=== PATIENT | female | born 1955 | race Caucasian/White ===

== ENCOUNTER 2019-10-18 14:53 | Emergency (ER) | payer BC, SELFPAY ==
--- NOTE | 2019-10-18 15:01 | ED.DENTAL ---
HPI - Dental/Oral General Chief complaint: Dental/Oral Stated complaint: toothache Time Seen by Provider: 10/18/19 15:04 Source: patient and RN notes reviewed Mode of arrival: ambulatory Limitations: no limitations History of Present Illness HPI Narrative: 64-year-old female presents with concern for fractured tooth. Report on evening she was eating and a tooth on the top right side of her mouth broke. She reports she has been in touch with her dentist, has an appointment tomorrow. Her dentist prescribed her an antibiotic which she has been taking. She reports she has been taking Aleve and ibuprofen for pain without relief. MD Complaint: tooth injury Location: Tooth # (2) Related Data Home Medications Medication Instructions Recorded Confirmed blood sugar diagnostic #10 each 08/21/19 fenofibrate 160 mg tablet 160 mg PO DAILY 08/21/19 lancets #50 each 08/21/19 metformin 500 mg tablet,extended 2,000 mg PO QPM tablet 08/21/19 release 24 hr oxybutynin chloride 5 mg tablet 5 mg PO TID 08/21/19 triamcinolone acetonide 0.05 % 1 applic TOPICAL BID 08/21/19 topical ointment Allergies Allergy/AdvReac Type Severity Reaction Status Date / Time Sulfa (Sulfonamide Allergy Unknown Verified 03/07/17 10:28 Antibiotics) Review of Systems Review of Systems: Narrative: CONSTITUTIONAL: Denies malaise, chills, sweats, or fever. CARDIOVASCULAR: Denies chest pain, palpitations HEENT: Reports right upper dental pain SKIN: Denies facial swelling NEUROLOGIC: Denies headache. All systems reviewed & are unremarkable except as noted in HPI and below PMFSH Social History Social History Smoking status: Heavy tobacco smoker Second hand tobacco smoke exposure: No Alcohol intake: never Comments At time of signature, agree with nursing past medical, surgical, social and family history. There is no relevant family history pertinent to the presenting complaint Exam Narrative: Exam Narrative: GENERAL: Well-appearing, well-nourished, and in no acute distress. HEAD: Normocephalic, atraumatic. EYES: PERRLA, conjunctivae clear ENT: Nares clear, no rhinorrhea or epistaxis. Mucous membranes moist. Oropharynx without edema, erythema or lesions. Fracture noted to tooth #2 with no periapical abscess noted NECK: Supple. CHEST: No respiratory distress. Clear to auscultation. No bony deformities, no asymmetry. Speaks in full sentences. HEART: Regular rate and rhythm. No murmur heard. SKIN: Warm, dry NEURO: Alert and oriented x3. PSYCH: Normal mood and affect Course Course Emergency Course: Patient is aware of diagnosis, understands and agrees to treatment plan. Anticipatory guidance given. Patient agrees to follow-up as directed and is aware of reasons to seek care at the emergency department. Portions of this record may have been created with voice recognition software Vital Signs Vital signs: Vital Signs Temperature 97.9 F 10/18/19 15:02 Pulse Rate 89 10/18/19 15:02 Respiratory Rate 16 10/18/19 15:02 Blood Pressure 139/66 10/18/19 15:02 Pulse Oximetry 93 10/18/19 15:02 Temperature 97.9 F 10/18/19 15:02 Pulse Rate 89 10/18/19 15:02 Respiratory Rate 16 10/18/19 15:02 Blood Pressure 139/66 10/18/19 15:02 Pulse Oximetry 93 10/18/19 15:02 Reviewed. Patient has current diagnosis of hypertension MDM - Dental/Oral MDM Narrative Medical decision making narrative: Patients pain and complaint coupled with physical findings are consistant with dentalgia. There are no focal signs of space occupying lesions that are compromising to the airway; no dysphagia, odynophagia, dysphonia, or dyspnea. No uvular deviation or soft palate edema. Patient is non-toxic appearing. The floor of the mouth is soft with no signs of Omi's Angina; no induration below mandible, no neck pain. Patient is without trismus or drooling and able to swallow secretions. Patient is felt appropriate for dischar
[2019-10-18 15:02] VITALS: BP 139/66; PULSE 89; RESP 16; TEMP 36.6; O2SAT 93
== END 2019-10-18 15:17 | disposition home or self-care (01) ==
PROVIDERS: Emergency Provider Nurse Practitioner; PCP Family Medicine
DX: S02.5XXA Fracture of tooth (traumatic), initial encounter for closed fracture (principal); X58.XXXA Exposure to other specified factors, initial encounter; F17.200 Nicotine dependence, unspecified, uncomplicated; I10 Essential (primary) hypertension; E11.9 Type 2 diabetes mellitus without complications
CPT/HCPCS: 99213; G0463

== ENCOUNTER 2021-05-18 10:54 | Emergency (ER) | payer OTHER, SELFPAY ==
[2021-05-18 11:02] VITALS: BP 142/64; PULSE 78; RESP 20; TEMP 36.2; O2SAT 96
--- NOTE | 2021-05-18 11:11 | ED.FEMALEGU ---
HPI - Female Genitourinary General Chief complaint: Urogenital-Female Stated complaint: POS UTI Time Seen by Provider: 05/18/21 11:11 Source: patient Mode of arrival: ambulatory Limitations: no limitations History of Present Illness HPI Narrative: Serene Humphreys is a 66 yo female with a PMH of hypertension, dyslipidemia, and diabetes who comes to [facility] with complaints of pressure and urgency. She has had UTIs in the past and states that [employer] works very well for her Related Data Home Medications Medication Instructions Recorded Confirmed triamcinolone acetonide 0.05 % 1 applic TOPICAL BID 08/21/19 05/18/21 topical ointment Allergies Allergy/AdvReac Type Severity Reaction Status Date / Time Sulfa (Sulfonamide Allergy Unknown Unknown Verified 05/18/21 11:01 Antibiotics) Review of Systems Review of Systems: CONSTITUTIONAL: Denies fever, chills, sweats. EYES: Denies visual changes, redness, discharge. ENT: Denies rhinorrhea, congestion, sore throat, otalgia. CARDIOVASCULAR: Denies chest pain, palpitations, edema. RESPIRATORY: Denies dyspnea, wheezing, cough GASTROINTESTINAL: Denies abdominal pain, nausea, vomiting, diarrhea. GENITOURINARY: Has dysuria, hematuria, abnormal discharge SKIN: Denies rash or itching. NEUROLOGIC: Denies numbness, or focal weakness. PSYCHIATRIC: Denies anxiety or depression. PMFSH Past Medical History Medical History (Updated 05/18/21 @ 11:21 by Julee Pruett CNP) CKD (chronic kidney disease) stage 3, GFR 30-59 ml/min Dyslipidemia Essential (primary) hypertension Hypertension On correction drug therapy RLS (restless legs syndrome) Type 2 diabetes mellitus with hyperglycemia, without long-term current use of insulin Unspecified osteoarthritis, unspecified site Urge incontinence of urine Social History Social History Smoking status: Former smoker Tobacco type: cigarettes Second hand tobacco smoke exposure: No Smoking end date: 08/19/17 Alcohol intake: never Substance use: never Substance use type: does not use Gender identity (if verbalized by the patient): Female Comments At time of signature, I agree with nursing past medical, surgical, social and family history. There is no relevant family history pertinent to the presenting complaint. Exam Narrative: GENERAL: This is a well-nourished, well-developed patient, in mild distress. HEAD: normocephalic, atraumatic. EYES: P Sclera clear/white. Vision is grossly intact. EARS: External ears normal, Hearing grossly intact. NOSE: External nose normal without nasal discharge, nares without redness, no rhinorrhea. THROAT: Mucous membranes moist, NECK: Neck supple, CARDIOVASCULAR: Regular rate and rhythm without murmurs, gallops, or rubs. RESPIRATORY: Clear to auscultation. Breath sounds equal bilaterally. No wheezes, rales, or rhonchi. GASTROINTESTINAL: Abdomen soft, SKIN: warm, intact with no suspicious lesions or rash, good texture and turgor. NEURO: awake, alert, and oriented to person, place and time. There were no obvious focal neurologic abnormalities. Steady gait EXTREMITIES: Normal range of motion. BACK: Nontender without deformity Course Course Emergency Course: Patient comes with complaints of dysuria and pressure times last few days has prior history of UTI 1+ leukocytes in UA with 1+ glucose also; patient states sugar today was 105 Start on Macrobid 1 twice daily x7 days Vital Signs Vital signs: Vital Signs Temperature 97.2 F L 05/18/21 11:02 Pulse Rate 78 05/18/21 11:02 Respiratory Rate 20 05/18/21 11:02 Blood Pressure 142/64 H 05/18/21 11:02 Pulse Oximetry 96 05/18/21 11:02 Temperature 97.2 F L 05/18/21 11:02 Pulse Rate 78 05/18/21 11:02 Respiratory Rate 20 05/18/21 11:02 Blood Pressure 142/64 H 05/18/21 11:02 Pulse Oximetry 96 05/18/21 11:02 MDM - Female Genitourinary Differential
== END 2021-05-18 11:26 | disposition home or self-care (01) ==
PROVIDERS: Emergency Provider Nurse Practitioner; PCP Family Medicine
DX: N30.00 Acute cystitis without hematuria (principal); Z87.891 Personal history of nicotine dependence; I12.9 Hypertensive chronic kidney disease with stage 1 through stage 4 chronic kidney disease, or unspecified chronic kidney disease; E11.22 Type 2 diabetes mellitus with diabetic chronic kidney disease; N18.30 Chronic kidney disease, stage 3 unspecified; Z79.4 Long term (current) use of insulin; E78.5 Hyperlipidemia, unspecified; G25.81 Restless legs syndrome; M19.90 Unspecified osteoarthritis, unspecified site
CPT/HCPCS: 81003; 87077; 87086; 87088; 87186; 99213; G0463

== ENCOUNTER 2022-01-14 15:43 | Observation (INO) | payer OTHER, SELFPAY ==
[2022-01-14] VITALS (18 sets, daily range): BP systolic 95–161; BP diastolic 67–106; PULSE 94–117; RESP 20–41; TEMP 36.4–36.7; O2SAT 86–100; BMI 42.9
--- NOTE | ~2022-01-14 | CT_ITS ---
EXAMINATION: CTA chest PE protocol DATE: 01/14/2022 18:47 CDT INDICATION: Covid positive. Hypoxia. Elevated d-dimer. TECHNIQUE: Computed tomographic angiography (CTA) of the chest was performed with 100 mL Omnipaque-35 0 intravenous contrast. The dose-length product was 965.13 mGy-cm. Maximum intensity projection 3D-re constructions of the aorta and other arteries were constructed by the technologist on a separate work station. Automated exposure control and iterative reconstruction technique were employed. COMPARISON: None. FINDINGS: Cardiomegaly. No significant pleural or pericardial effusion. There is atherosclerosis of t he aorta and coronary arteries. There are filling defects in lower lobe segmental and subsegmental pu lmonary arteries, consistent with pulmonary embolism. No endobronchial lesions. No focal airspace con solidation. Evaluation of lung parenchyma limited by motion artifact. No large pulmonary nodules or m asses. Moderate thoracic spondylosis with accentuated kyphosis. IMPRESSION: 1. Bilateral lower lobe segmental and subsegmental pulmonary embolism, small thrombus burden. 2: Cardiomegaly. Reviewed, dictated and finalized at location A. IMPRESSION: 1. Bilateral lower lobe segmental and subsegmental pulmonary embolism, small th rombus burden. 2: Cardiomegaly.
--- NOTE | ~2022-01-14 | XR_ITS ---
EXAMINATION: XR chest 1V portable 01/14/2022 16:19 INDICATION: Shortness of breath PROCEDURE: AP portable chest COMPARISON: No prior studies for comparison. FINDINGS: The lungs are clear. Mild cardiomegaly. There are no pleural effusions. There is no pneumo thorax suspected. IMPRESSION: 1: NO ACUTE CARDIOPULMONARY DISEASE. 2: Cardiomegaly. Reviewed, dictated and finalized at location A.
--- NOTE | 2022-01-14 15:46 | PC.NURSE ---
Beam Machine Operator called respiratory.
--- NOTE | 2022-01-14 15:55 | PC.NURSE ---
Respiratory at bedside to place patient on Bipap and to administer breathing treatment.
[2022-01-14] MEDS: LORazepam INJ (*CRX) 2 MG/ML VIAL 1 MG IV PUSH (15:58)
[2022-01-14] MEDS: IPRATROPIUM BR 0.02% INH SOLN 0.5 MG/2.5 ML VIAL 2 MG INHALATION (16:00)
[2022-01-14] MEDS: ALBUTEROL SULFATE NEB 2.5 MG/3 ML INH 10 MG INHALATION ×2 (16:00→16:51)
--- NOTE | 2022-01-14 16:01 | ED.GENADULT ---
HPI - General Adult General Chief complaint: Shortness of Breath/Dyspnea Stated complaint: shortness of breath Time Seen by Provider: 01/14/22 15:50 History of Present Illness HPI narrative: 66-year-old female presented emerged department for evaluation of cute onset of shortness of breath. Patient states that she has felt well over the last few days and denied any recent illness. Patient states that few hours prior to arrival she began having shortness of breath. Patient has a smoking history but denies any prior diagnosis of COPD. Patient states she is vaccinated against COVID and denies any recent COVID exposure. Patient denies any associated chest pain. Upon arrival to the scene by EMS patient was found to be hypoxic and to the 80s on room air. Patient is not on oxygen at home. Initial EKG obtained by EMS did show ST elevation with no reciprocal depression but was auto-read as possible STEMI. STEMI was not called on the field EKG. Upon arrival to the ED EKG was repeated and once again did show some elevation with no reciprocal depression. Patient continues to deny any chest pain upon arrival. Patient denies any prior history of [place] or COPD. Patient is a smoker. Patient does have prior history of hypertension and high cholesterol. Patient is obese. Related Data Home Medications Medication Instructions Recorded Confirmed fenofibrate 160 mg tablet 160 mg PO DAILY 11/23/21 01/14/22 verapamil 180 mg tablet,extended 360 mg PO DAILY 01/14/22 01/14/22 release Allergies Allergy/AdvReac Type Severity Reaction Status Date / Time Sulfa (Sulfonamide Allergy Unknown Unknown Verified 11/23/21 13:05 Antibiotics) Review of Systems Review of Systems: CONSTITUTIONAL: Denies fever, chills, or sweats. EYES: Denies visual changes, redness, or discharge. ENT: Denies rhinorrhea, congestion, sore throat, or otalgia. CARDIOVASCULAR: See HPI, lower extremity edema RESPIRATORY: See HPI GASTROINTESTINAL: Denies abdominal pain, nausea, vomiting, or diarrhea. GENITOURINARY: Denies dysuria or hematuria. SKIN: Denies rash or itching. MUSCULOSKELETAL: Denies back pain, joint pain, or myalgia. NEUROLOGIC: Denies headache, numbness, or weakness. [facility] Past Medical History Medical History (Updated 01/14/22 @ 19:44 by Janelle Alfaro APRN) CKD (chronic kidney disease) stage 3, GFR 30-59 ml/min Dyslipidemia Essential (primary) hypertension Hypertension On intermediate card tender drug therapy RLS (restless legs syndrome) Type 2 diabetes mellitus with hyperglycemia, without long-term current use of insulin Unspecified osteoarthritis, unspecified site Urge incontinence of urine Social History Social History Smoking packs per day: 0.5 Smoking cigarettes per day: 10.0 Years smoked: 42 Smoking pack-years: 21.00 Smoking status: Current every day smoker Tobacco type: cigarettes Second hand tobacco smoke exposure: No Smoking end date: 08/19/19 Alcohol intake: never Substance use: never Substance use type: does not use Gender identity (if verbalized by the patient): Female Spiritual care concerns: Yes Exam Narrative: APPEARANCE: Well appearing, no pain, no distress, well-nourished. HEAD: normocephalic, atraumatic. EYES: PERRLA/EOMI, conjunctivae clear. NOSE: Normal no drainage THROAT: Pharynx clear, no exudate. NECK: Supple. No adenopathy, no masses. RESPIRATORY: Wheezing bilaterally CARDIOVASCULAR: Tachycardic with regular rhythm without murmurs rubs or gallops, bilateral lower extremity edema. ABDOMINAL: Soft, nontender, nondistended, normal bowel sounds MUSCULOSKELETAL: Moves all extremities. Strength/ROM intact NEURO: Alert. Cranial nerves II through XII intact. Grossly intact SKIN: Warm, dry. Normal Color Course Course Emergency Course: Due to her increased work of breathing patient was placed on BiPAP upon arrival to the ED. Patient was having anxie
[2022-01-14 16:03] LABS: Basophils Absolute Auto 0.1 K/mm3 (0.0-0.1); Basophils Percent Auto 0.4 % (0.2-1.2); Eosinophils Absolute Auto 0.2 K/mm3 (0-0.3); Eosinophils Percent Auto 1.3 % (0-4.4); Hematocrit 45.2 % (37.0-47.0); Hemoglobin 13.8 g/dL (12.0-15.0); Immature Granulocyte Absolute 0.04 K/mm3 (0.00-0.031); Immature Granulocyte Percent A 0.3 % (0-0.5); Lymphocytes Absolute Auto 2.85 K/mm3 (0.9-3.2); Lymphocytes Percent Auto 23.9 % (18.3-44.2); Mean Corpuscular HGB Conc 30.5 g/dl (32-36); Mean Corpuscular Hemoglobin 28.7 pg (26-34); Mean Platelet Volume 10.3 fl (7.4-10.4); Monocytes Percent Auto 8.5 % (2.6-8.5); Neutrophils Absolute Auto 7.8 K/mm3 (1.3-6.7); Neutrophils Percent Auto 65.6 % (45.5-73.1); Platelet Count Result 335 k/mm3 (150-375); Red Blood Count 4.81 M/mm3 (4.2-5.4); Red Cell Distribution Width 12.9 % (11.5-14.5); White Blood Count 11.9 K/mm3 (4.5-10.0)
[2022-01-14] MEDS: methylPREDNISolone SOD SUCC 125 MG VIAL IV PUSH (16:04)
--- NOTE | 2022-01-14 16:09 | PC.NURSE ---
Respiratory started inline breathing treatment with Bipap at this time.
--- NOTE | 2022-01-14 16:17 | ECG_ITS ---
Measurements Intervals [place] Rate: 119 P: 60 LA: 174 QRS: -50 QRSD: 130 T: 82 QT: 308 QTc: 434 Interpretive Statements SINUS TACHYCARDIA LEFT AXIS DEVIATION INTRAVENTRICULAR CONDUCTION DELAY LEFT VENTRICULAR HYPERTROPHY WITH ST-T CHANGE POOR R WAVE PROGRESSION, ANTERIOR LEADS ST ELEVATION IN ANTEROLAT/INF LEADS- CONSIDER ACUTE INJURY, PERICARDITIS OR EARLY REPOLARIZATION ABNORMALITY BASELINE ARTIFACT- I, II, III, AVR, AVL, AVF, V1-V6 ABNORMAL ECG Electronically Signed On 01-14-2022 20:36:50 CDT by Lui Ceron D.O.
[2022-01-14 16:20] LABS: Alanine Aminotransferase 21 U/L (6-35); Albumin Level 4.4 g/dL (3.5-5.1); Alkaline Phosphatase 61 U/L (38-126); Anion Gap 12 mmol/L (8-16); Aspartate Amino Transferase 31 U/L (14-36); Bilirubin,Total 0.2 mg/dL (0.2-1.3); Blood Urea Nitrogen 27 mg/dL (7-17); Calcium 9.5 mg/dL (8.4-10.2); Carbon Dioxide 20 mmol/L (22-30); Chloride 106 mmol/L (98-107); Estimated CRCL calculation 49 ml/min; Estimated Glomerular Filt Rate 45; Glucose 195 mg/dL (65-110); Potassium 5.2 mmol/L (3.4-5.0); Prothrombin Time 12.6 Seconds (11.1-14.7); Sodium 138 mmol/L (137-145)
[2022-01-14 16:22] LABS: NT Pro B Type Natriuretic Pept 186 pg/mL (5-100); Partial Thromboplastin Time 32.6 SECONDS (22.3-36.8)
--- NOTE | 2022-01-14 16:29 | ECG_ITS ---
Measurements Intervals [place] Rate: 99 P: 42 HI: 187 QRS: -58 QRSD: 125 T: 79 QT: 346 QTc: 444 Interpretive Statements SINUS RHYTHM LEFT ANTERIOR FASCICULAR BLOCK [QRS AXIS <= -45, QR IN I, RS IN II] LEFT VENTRICULAR HYPERTROPHY AND ST-T CHANGE [VOLTAGE CRITERIA PLUS ST/T ABNORMALITY] ABNORMAL ECG COMPARED TO ECG 01/14/2022 15:48:49 SINUS RHYTHM NOW PRESENT LEFT ANTERIOR FASCICULAR BLOCK NOW PRESENT Electronically Signed On 01-19-2022 16:51:33 CDT by Ozzy Martínez M.D.
[2022-01-14 16:32] LABS: Troponin I 0.078 ng/mL (0.000-0.034)
[2022-01-14 16:55] LABS: SARS-CoV-2 RNA PCR Positive
[2022-01-14 18:07] LABS: D Dimer 0.78 ug/mL (<0.48)
--- NOTE | 2022-01-14 18:08 | PC.NURSE ---
Patient took her Bipap mask off. Dr. Crockett aware and informed headline writer to place patient on 2L of oxygen via nasal cannula. Patient placed on 2L O2 via nasal cannula.
[2022-01-14] MEDS: ENOXAPARIN 120 MG/0.8 ML SYRINGE 105 MG SUB-Q (18:20)
--- NOTE | 2022-01-14 18:54 | ADMGEN ---
This patient, Serene Humphreys, was admitted to IMU Room 207-01. Patient/family oriented to hospital policies and general routines including ID bracelet, bed and alarms, visiting hours, pain management, procedures, bathroom and other care routines, personal items, smoking policy, room service/diet, and visiting hours. Information on how to activate the Rapid Response Team has been discussed. Patient/Family are encouraged to report perceived risks to care and to ask questions if they do not understand what they are told or what they should do.
--- NOTE | 2022-01-14 19:18 | PM.IMHP ---
H&P: HPI History of Present Illness Date/Time: Patient was placed observation status for expected length of stay less than 23 hours for management, will plan to re-evaluate tomorrow for improvement. 01/14/22 19:18 Chief Complaint: Shortness of breath Narrative: Ms. Humphreys is a 66-year-old female who presented emergency room with abrupt onset of shortness of breath. Patient states she had been feeling well until today she had a very abrupt onset of shortness of breath. Patient called EMS and upon evaluation by EMS she was noted to be in respiratory distress. Patient was placed on a non-rebreather, given 324 mg of aspirin, and 1 nitro spray without any change in condition. Patient was then transported to the emergency room where she was placed on BiPAP. Patient was noted to have significant wheezing and was given Solu-Medrol and a DuoNeb treatment. Patient did have multiple laboratories drawn and it was noted that her D-dimer was elevated so patient was given a full dose of Lovenox and a CTA was performed. Patient states she was extremely short of breath, but after BiPAP placement she is feeling significantly better. Patient denied ever having any chest discomfort, lightheadedness, dizziness, syncopal, or near syncopal episodes. Patient denies any history of COPD and states she has never been told she has any lung issues. A COVID swab was performed and patient was COVID positive. Patient states she has been vaccinated and had the booster. The patient has a known history diabetes mellitus, dyslipidemia, osteoarthritis, hypertension, and chronic kidney disease. Review of Systems Review of Systems: A 12 point review of systems was completed patient all pertinent positive and negative per HPI the remainder are unremarkable. [facility] Past Medical History Medical History (Updated 01/14/22 @ 19:44 by Janelle lAfaro APRN) CKD (chronic kidney disease) stage 3, GFR 30-59 ml/min Dyslipidemia Essential (primary) hypertension Hypertension On intermediate project manager drug therapy RLS (restless legs syndrome) Type 2 diabetes mellitus with hyperglycemia, without long-term current use of insulin Unspecified osteoarthritis, unspecified site Urge incontinence of urine Social History Social History Smoking packs per day: 0.5 Smoking cigarettes per day: 10.0 Years smoked: 42 Smoking pack-years: 21.00 Smoking status: Current every day smoker Tobacco type: cigarettes Second hand tobacco smoke exposure: No Smoking end date: 08/19/19 Alcohol intake: never Substance use: never Substance use type: does not use Gender identity (if verbalized by the patient): Female Spiritual care concerns: Yes Meds Home Medications and Allergies Home Medications Medication Instructions Recorded Confirmed Type blood-glucose meter (Blood Glucose #1 ea 03/21/20 11/23/21 Rx Monitoring) lancets (OneTouch UltraSoft #100 ea 01/12/21 11/23/21 Rx Lancets) blood sugar diagnostic (OneTouch #100 ea 07/03/21 11/23/21 Rx Ultra Test) cholecalciferol (vitamin D3) 50 50 mcg PO DAILY #90 caps 11/23/21 01/14/22 Rx mcg (2,000 unit) capsule fenofibrate 160 mg tablet 160 mg PO DAILY 11/23/21 01/14/22 History glimepiride 2 mg tablet 2 mg PO DAILY #90 tabs 11/23/21 01/14/22 Rx lisinopril 10 mg tablet 10 mg PO DAILY #90 tabs 11/23/21 01/14/22 Rx meloxicam 7.5 mg tablet 7.5 mg PO DAILY #90 tabs 11/23/21 01/14/22 Rx metformin 500 mg tablet,extended 2,000 mg PO DAILY #360 tabs 11/23/21 01/14/22 Rx release 24 hr oxybutynin chloride 5 mg tablet 5 mg PO TID #270 tabs 11/23/21 01/14/22 Rx triamterene 75 1 tablet PO DAILY #90 tabs 11/23/21 01/14/22 Rx mg-hydrochlorothiazide 50 mg tablet tramadol 50 mg tablet 50 mg PO BID PRN pain #20 tabs 11/27/21 01/14/22 Rx verapamil 180 mg tablet,extended 360 mg PO DAILY 01/14/22 01/14/22 History release Allergies Allergy/AdvReac Type Severity Reacti
[2022-01-14 19:42] LABS: Anion Gap 9 mmol/L (8-16); Blood Urea Nitrogen 29 mg/dL (7-17); Calcium 9.2 mg/dL (8.4-10.2); Carbon Dioxide 19 mmol/L (22-30); Chloride 106 mmol/L (98-107); Estimated CRCL calculation 43 ml/min; Estimated Glomerular Filt Rate 41; Glucose 270 mg/dL (65-110); Sodium 134 mmol/L (137-145)
[2022-01-14 20:18] LABS: Glucose Point of Care 291 mg/dl (65-105)
[2022-01-14] MEDS: REMDESIVIR 200 MG/NS 250 ML 200 MG/250 ML BAG 250 MG IVPB (21:16)
[2022-01-14 22:07] LABS: SARS-CoV-2 RNA PCR Positive
[2022-01-15] VITALS (15 sets, daily range): BP systolic 97–128; BP diastolic 62–77; PULSE 70–112; RESP 18–20; TEMP 35.9–37.1; O2SAT 94–99
[2022-01-15] LABS: Appearance Urine Clear (Clear); Bilirubin Urine Negative (Negative); Color Urine Yellow (Yellow); Glucose Urine UA 3+ mg/dL (Negative); Ketones Urine Trace mg/dL (Negative); Leukocyte Esterase Ur Negative LEU/UL (Negative); Nitrate Urine Negative (Negative); Protein Urine Trace mg/dL (Negative); Specific Grav Ur 1.015 (1.001-1.035); Urobilinogen Urine 0.2 mg/dL (<2.0)
[2022-01-15 00:01] LABS: Mucus Urine Rare /lpf; RBC Urine 0-2 /hpf (0-2); Squamous Epithelial Cell Urine Rare /hpf (Few); WBC Urine 0-3 /hpf
[2022-01-15 00:02] LABS: Add Urine Microscopic? YES; Blood Urine Trace (Negative)
[2022-01-15 04:34] LABS: Hematocrit 40.5 % (37.0-47.0); Hemoglobin 12.6 g/dL (12.0-15.0); Immature Granulocyte Absolute 0.02 K/mm3 (0.00-0.031); Immature Granulocyte Percent A 0.3 % (0-0.5); Lymphocytes Absolute Auto 0.48 K/mm3 (0.9-3.2); Lymphocytes Percent Auto 8.3 % (18.3-44.2); Mean Corpuscular HGB Conc 31.1 g/dl (32-36); Mean Corpuscular Hemoglobin 28.6 pg (26-34); Mean Platelet Volume 10.4 fl (7.4-10.4); Monocytes Absolute Auto 0.2 K/mm3 (0.1-0.6); Monocytes Percent Auto 2.6 % (2.6-8.5); Neutrophils Absolute Auto 5.2 K/mm3 (1.3-6.7); Neutrophils Percent Auto 88.8 % (45.5-73.1); Platelet Count Result 225 k/mm3 (150-375); Red Cell Distribution Width 12.7 % (11.5-14.5); White Blood Count 5.8 K/mm3 (4.5-10.0)
[2022-01-15 04:52] LABS: Alanine Aminotransferase 20 U/L (6-35); Albumin Level 4.1 g/dL (3.5-5.1); Alkaline Phosphatase 42 U/L (38-126); Anion Gap 9 mmol/L (8-16); Aspartate Amino Transferase 36 U/L (14-36); Bilirubin,Total 0.5 mg/dL (0.2-1.3); Blood Urea Nitrogen 31 mg/dL (7-17); CRP 1.3 mg/dL (<1.0); Calcium 9.2 mg/dL (8.4-10.2); Carbon Dioxide 19 mmol/L (22-30); Chloride 106 mmol/L (98-107); Estimated CRCL calculation 46 ml/min; Estimated Glomerular Filt Rate 45; Glucose 303 mg/dL (65-110); Magnesium 1.7 mg/dL (1.6-2.3); Potassium 5.4 mmol/L (3.4-5.0); Sodium 134 mmol/L (137-145)
[2022-01-15] MEDS: ENOXAPARIN 120 MG/0.8 ML SYRINGE 105 MG SUB-Q ×2 (05:53→16:52)
[2022-01-15 07:43] LABS: INR 1.1; Prothrombin Time 13.7 Seconds (11.1-14.7)
[2022-01-15 08:18] LABS: Glucose Point of Care 271 mg/dl (65-105)
--- NOTE | 2022-01-15 08:38 | PM.IMPN ---
Progress Note: A&P Assessment and Plan (1) CKD (chronic kidney disease) stage 3, GFR 30-59 ml/min: Qualifiers: Chronic kidney disease stage 3 subtype: stage 3a (GFR 45-59) Qualified Code(s): N18.31 - Chronic kidney disease, stage 3a Code(s): N18.3 - Chronic kidney disease, stage 3 (moderate) Status: Acute (2) COVID: Code(s): U07.1 - COVID-19 Status: Acute Assessment and Plan: COVID19 positive. Vaccinated + boosted. Rapid and PCR positive. Saturating well on 2LNC. Discussed weaning to room air. -Remdesivir -Enpxaparin -Dexamethasone -Wean oxygen as tolerated (3) Pulmonary embolism: Qualifiers: Pulmonary embolism type: other Chronicity: acute Acute cor pulmonale presence: without acute cor pulmonale Qualified Code(s): I26.99 - Other pulmonary embolism without acute cor pulmonale Code(s): I26.99 - Other pulmonary embolism without acute cor pulmonale Status: Acute Assessment and Plan: CTA with bilateral lower lobe segmental and subsegmental PE. -Enoxaparin BID -Will need Apixaban for discharge and follow up with PCP (4) Acute respiratory distress: Code(s): R06.03 - Acute respiratory distress Status: Acute Assessment and Plan: Likely due to anxiety, COVID19 and new bilateral PE. Will wean oxygen as tolerated. (5) Dyslipidemia: Code(s): E78.5 - Hyperlipidemia, unspecified Status: Acute Assessment and Plan: Continue home fenofibrate. (6) Essential (primary) hypertension: Code(s): I10 - Essential (primary) hypertension Status: Acute Assessment and Plan: Continue home lisinopril and triamterene - hctz. (7) Type 2 diabetes mellitus with hyperglycemia, without long-term current use of insulin: Code(s): E11.65 - Type 2 diabetes mellitus with hyperglycemia Status: Acute Assessment and Plan: Holding meformin due to CTA dye. Continue other home glimepiride. (8) RLS (restless legs syndrome): Code(s): G25.81 - Restless legs syndrome Status: Acute Assessment and Plan: Continue tramadol. Subjective Date/time seen: 01/15/22 08:38 Patient says she feels much better this morning. Says she does have some shortness of breath occasionally while in her room. Denies nausea, vomiting, diarrhea. Review of Systems Gastrointestinal: Gastrointestinal: Denies diarrhea, Denies nausea and Denies vomiting Exam Narrative: GENERAL: NAD, cooperative HEENT: Normocephalic, atraumatic, anicteric, nares clear NECK: Supple CV: Normal S1, S2, RRR, No MRG RESP: CTAB, Normal work of breathing. Abdomen: Soft, non-tender, non-distended, +BS EXTREMITIES: Warm and well perfused, no clubbing, cyanosis, or edema. SKIN: warm, dry and intact. NEURO:CN 2-12 grossly intact. Objective Data Vital Signs Vital Signs: Vital Signs - 24 hr 01/14/22 15:47 01/14/22 15:54 01/14/22 16:00 Temperature Pulse Rate 117 H 108 H Respiratory Rate 39 H 37 H Blood Pressure 161/106 H Pulse Oximetry 86 L 100 100 Oxygen Delivery Room Air Non-Rebreather Mask BiPAP Oxygen Flow Rate 15 01/14/22 16:04 01/14/22 16:24 01/14/22 16:15 Temperature Pulse Rate 107 H 97 102 H Respiratory Rate 41 H 37 H Blood Pressure Pulse Oximetry 100 Oxygen Delivery Oxygen Flow Rate 01/14/22 16:17 01/14/22 16:25 01/14/22 16:51 Temperature Pulse Rate 101 H 94 Respiratory Rate 36 H 30 H Blood Pressure 95/67 L Pulse Oximetry 100 Oxygen Delivery Oxygen Flow Rate 01/14/22 16:53 01/14/22 17:02 01/14/22 18:22 Temperature Pulse Rate 96 98 Respiratory Rate 32 H 32 H Blood Pressure Pulse Oximetry 100 95 Oxygen Delivery BiPAP Nasal Cannula Oxygen Flow Rate 2 01/14/22 19:02 01/14/22 19:55 01/14/22 20:00 Temperature 97.6 F 97.6 F Pulse Rate 114 H 114 H Respiratory Rate 24 H 24 H Blood Pressure 127/76 127/76 Pulse Oximetry 9
[2022-01-15] MEDS: UMECLIDINIUM/VILANTEROL 62.5-25 MCG ELLIPTA 1 PUFF INHALATION (08:54)
[2022-01-15] MEDS: TRIAMTERENE 37.5 MG/HCTZ 25 MG (MAXZIDE) TABLET 2 TAB PO (09:40)
[2022-01-15] MEDS: lisinopriL 10 MG TABLET PO (09:40)
[2022-01-15] MEDS: CHOLECALCIFEROL 1,000 UNITS TABLET 2000 UNITS PO (09:41)
[2022-01-15] MEDS: VERAPAMIL HCL 180 MG TABLET ER 360 MG PO (09:41)
[2022-01-15] MEDS: OXYBUTYNIN CHLORIDE 5 MG TABLET PO ×3 (09:41→16:52)
[2022-01-15] MEDS: GLIMEPIRIDE 2 MG TABLET PO (09:42)
[2022-01-15] MEDS: FENOFIBRATE 160 MG TABLET PO (09:42)
[2022-01-15] MEDS: INSULIN ASPART (*BKC) 100 UNITS/ML SUB-Q ×3 (09:43→16:53)
[2022-01-15] MEDS: traMADol HCL (*CRX) 50 MG TABLET PO ×2 (09:46→21:17)
[2022-01-15 11:58] LABS: Glucose Point of Care 222 mg/dl (65-105)
--- NOTE | 2022-01-15 13:30 | PC.NURSE ---
This patient, Serene Humphreys, was transferred to [facility] on 01/15/22 at 1310. Personal belongings sent with patient. Report given to Nuvia CAMPOS. Appropriate documentation sent with patient.
--- NOTE | 2022-01-15 14:41 | PM.CNCAR ---
Assessment and Plan Assessment and plan (1) Pulmonary embolism: Qualifiers: Pulmonary embolism type: other Chronicity: acute Acute cor pulmonale presence: without acute cor pulmonale Qualified Code(s): I26.99 - Other pulmonary embolism without acute cor pulmonale Code(s): I26.99 - Other pulmonary embolism without acute cor pulmonale Status: Acute Assessment and Plan: Acute bilateral pulmonary embolism noted on CT angiogram of the chest resulting in abrupt acute respiratory distress, tachycardia and elevated troponin in the setting of a COVID positive status. Systemic anticoagulation has been initiated. Continue enoxaparin 1 milligram/kilogram subcutaneous q.12 hours transition oral anticoagulation at the discretion of the primary service. Obtain 2D echocardiogram to assess LV and RV size/function, valve pathology pulmonary pressures. Given degree of troponin elevation can not exclude underlying CAD, however, patient did not present with anginal symptoms therefore I have concerns for may be evidence of significant RV strain and or RV infarction. Recommendation to follow after review of echocardiogram. Patient made it very clear she has no interest in nor will she be considering invasive angiography even if advised. I had not suggested she required angiography but took the initiative to state she would not agree. (2) Elevated troponin: Code(s): R77.8 - Other specified abnormalities of plasma proteins Status: Acute Assessment and Plan: Most likely type 2 infarction secondary to acute bilateral PE in setting of a COVID acute respiratory distress less likely secondary to acute coronary syndrome and/or plaque rupture. Patient did not present with angina clear ischemic EKG changes. ED consistent with nonspecific IVCD, LVH with strain and diffuse J-point elevation without reciprocal ST depressions. However, I cannot exclude underlying CAD and demand ischemia in this regard. Ischemic evaluation the future appropriate given patient's multiple risk factors for underlying CAD if patient agrees. Aspirin 81 mg daily as tolerated. As statin therapy. Check lipid panel. (3) Acute respiratory distress: Code(s): R06.03 - Acute respiratory distress Status: Acute Assessment and Plan: As above secondary to acute PE in setting of COVID. Management per primary service. O2 supplementation, bronchodilator therapy, systemic anticoagulation. (4) COVID: Code(s): U07.1 - COVID-19 Status: Acute Assessment and Plan: Continue isolation. PCR pending. Management per primary service. (5) Essential (primary) hypertension: Code(s): I10 - Essential (primary) hypertension Status: Acute Assessment and Plan: BP stable, variable. Continue close observation. (6) Type 2 diabetes mellitus with hyperglycemia, without long-term current use of insulin: Code(s): E11.65 - Type 2 diabetes mellitus with hyperglycemia Status: Acute Assessment and Plan: Per primary service. (7) CKD (chronic kidney disease) stage 3, GFR 30-59 ml/min: Qualifiers: Chronic kidney disease stage 3 subtype: stage 3a (GFR 45-59) Qualified Code(s): N18.31 - Chronic kidney disease, stage 3a Code(s): N18.3 - Chronic kidney disease, stage 3 (moderate) Status: Acute Assessment and Plan: Stable, monitor closely, monitor electrolytes. (8) Dyslipidemia: Code(s): E78.5 - Hyperlipidemia, unspecified Status: Acute Assessment and Plan: As statin therapy. Fasting lipid profile. History of Present Illness History of Present Illness Consult date/time: Date of service: 01/15/22 14:41 Requesting physician: Janelle Alfaro, [employer] Reason For Visit: COVID/COPD/elevated trop/resp distress Narrative: Date of service: 01/15/2022 10:30 a.m. Cardiology consultation at the request of Janelle Alfaro of the [facility] service for
[2022-01-15 16:27] LABS: Glucose Point of Care 255 mg/dl (65-105)
[2022-01-15 20:30] LABS: Glucose Point of Care 242 mg/dl (65-105)
[2022-01-15] MEDS: REMDESIVIR 100 MG/NS 250 ML 100 MG/250 ML BAG 250 MG IVPB (21:18)
[2022-01-15] MEDS: ACETAMINOPHEN 325 MG TABLET 650 MG PO (23:05)
[2022-01-16] VITALS: BP 110/60; PULSE 94; PULSE 96; RESP 18; TEMP 36.6; O2SAT 97
[2022-01-16 03:59] VITALS: BP 112/77; PULSE 98; RESP 20; TEMP 36.6; O2SAT 97
[2022-01-16 04:00] VITALS: PULSE 94
[2022-01-16] MEDS: ENOXAPARIN 120 MG/0.8 ML SYRINGE 105 MG SUB-Q (05:27)
[2022-01-16 06:48] LABS: Alanine Aminotransferase 22 U/L (6-35); Cholesterol 174 mg/dL (0-200); Estimated CRCL calculation 46 ml/min; Estimated Glomerular Filt Rate 45; HDL Direct 43 mg/dL; Triglycerides 203 mg/dL (<150)
[2022-01-16 06:59] LABS: LDL Cholesterol Direct 85 mg/dL
[2022-01-16 07:21] LABS: INR 1.1; Prothrombin Time 13.6 Seconds (11.1-14.7)
--- NOTE | 2022-01-16 07:29 | PM.DS ---
DS: Admitting Diagnosis Discharge Date 01/16/22 Admitting Diagnosis Acute hypoxemic respiratory failure due to COVID 19, Bilateral Pulmonary Embolism DS: Discharge Diagnosis Discharge Diagnosis (1) Acute respiratory distress: Code(s): R06.03 - Acute respiratory distress Status: Acute Assessment and Plan: Likely due to anxiety, COVID19 and new bilateral PE. Saturating well off oxygen. Echo was completed w/ no evidence of RV strain. Will continue steroid and anticoagulation for discharge. (2) COVID: Code(s): U07.1 - COVID-19 Status: Acute Assessment and Plan: COVID19 positive. Vaccinated + boosted. Rapid and PCR positive. On room air with adequate saturation. Will discharge to [facility] e -Discontinue Remdesivir -Discontinue Enoxaparin -Dexamethasone 6 mg po x 10 days total treatment for discharge -Albuterol inhaler for wheezes PRN (3) Pulmonary embolism: Qualifiers: Pulmonary embolism type: other Chronicity: acute Acute cor pulmonale presence: without acute cor pulmonale Qualified Code(s): I26.99 - Other pulmonary embolism without acute cor pulmonale Code(s): I26.99 - Other pulmonary embolism without acute cor pulmonale Status: Acute Assessment and Plan: CTA with bilateral lower lobe segmental and subsegmental PE. No RV strain on echo. -Apixaban for discharge and follow up with PCP -Patient was advised to discontinue use of NSAIDs while taking apixaban. Patient verbalized understanding of plan and this is documented in the patient instructions. (4) CKD (chronic kidney disease) stage 3, GFR 30-59 ml/min: Qualifiers: Chronic kidney disease stage 3 subtype: stage 3a (GFR 45-59) Qualified Code(s): N18.31 - Chronic kidney disease, stage 3a Code(s): N18.3 - Chronic kidney disease, stage 3 (moderate) Status: Acute Assessment and Plan: Stable. Creatinine at baseline. Follow up outpatient with PCP. (5) Dyslipidemia: Code(s): E78.5 - Hyperlipidemia, unspecified Status: Acute Assessment and Plan: Continue home fenofibrate. (6) Essential (primary) hypertension: Code(s): I10 - Essential (primary) hypertension Status: Acute Assessment and Plan: Continue home lisinopril and triamterene - hctz. (7) Type 2 diabetes mellitus with hyperglycemia, without long-term current use of insulin: Code(s): E11.65 - Type 2 diabetes mellitus with hyperglycemia Status: Acute Assessment and Plan: May resume metformin after discharge and continue glimepiride. (8) RLS (restless legs syndrome): Code(s): G25.81 - Restless legs syndrome Status: Acute Assessment and Plan: Continue tramadol. DS: Summary Hospital Course Reason for hospitalization: PE, COVID19 Hospital Course: 66F with a past medical history of diabetes, hyperlipidemia, osteoarthritis, hypertension and CKD stage III who presented to the ED with sudden onset shortness of breath found to be COVID19 positive with bilateral pulmonary emboli. CTA showed bilateral segmental and subsegmental pulmonary emboli. Cardiology was consulted due to elevated troponin and was concerned for RV strain or infarct. Patient admantly declined that she was willing to undergo any type of intervention before one was even offered. The echocardiogram showed no evidence of RV strain with normal functioning RV. Patient was treated with remdesivir for three doses, dexamethasone and therapeutically dosed enoxaparin. Patient was initially on oxygen but this was weaned quickly. Patient discharged to home with apixaban and dexamethasone. Time Spent with Patient Time attestation: Total time spent providing and/or coordinating discharge services: Exam Narrative: GENERAL: NAD, cooperative HEENT: Normocephalic, atraumatic, anicteric, nares clear NECK: Supple CV: Normal S1, S2, RRR, No MRG RESP: CTAB, Normal work of breathing.
[2022-01-16] MEDS: UMECLIDINIUM/VILANTEROL 62.5-25 MCG ELLIPTA 1 PUFF INHALATION (07:55)
[2022-01-16 07:58] VITALS: O2SAT 93
[2022-01-16 08:00] VITALS: PULSE 98
--- NOTE | 2022-01-16 08:00 | ECG_ITS ---
Measurements Intervals [place] Rate: 111 P: 3 SC: 158 QRS: -46 QRSD: 106 T: 192 QT: 373 QTc: 509 Interpretive Statements SINUS OR ECTOPIC ATRIAL TACHYCARDIA LOW QRS VOLTAGE IN PRECORDIAL LEADS LEFT ANTERIOR FASCICULAR BLOCK T WAVE ABNORMALITY IN ANTEROLAT/HIGH LAT LEADS- CONSIDER ISCHEMIA BASELINE ARTIFACT- II, AVR, AVL, AVF ABNORMAL ECG Electronically Signed On 01-16-2022 9:16:18 CDT by Lui Ceron D.O.
[2022-01-16 08:29] LABS: Glucose Point of Care 328 mg/dl (65-105)
[2022-01-16] MEDS: VERAPAMIL HCL 180 MG TABLET ER 360 MG PO (09:18)
[2022-01-16] MEDS: OXYBUTYNIN CHLORIDE 5 MG TABLET PO ×2 (09:19→13:08)
[2022-01-16] MEDS: TRIAMTERENE 37.5 MG/HCTZ 25 MG (MAXZIDE) TABLET 2 TAB PO (09:19)
[2022-01-16] MEDS: lisinopriL 10 MG TABLET PO (09:19)
[2022-01-16] MEDS: GLIMEPIRIDE 2 MG TABLET PO (09:19)
[2022-01-16] MEDS: INSULIN ASPART (*BKC) 100 UNITS/ML SUB-Q ×2 (09:19→13:08)
[2022-01-16] MEDS: CHOLECALCIFEROL 1,000 UNITS TABLET 2000 UNITS PO (09:19)
[2022-01-16] MEDS: FENOFIBRATE 160 MG TABLET PO (09:19)
[2022-01-16] MEDS: ASPIRIN 81 MG ENTERIC TABLET PO (09:19)
[2022-01-16] MEDS: traMADol HCL (*CRX) 50 MG TABLET PO (09:24)
--- NOTE | 2022-01-16 11:14 | PM.PNCARD ---
Progress Note: A&P Assessment and Plan (1) Pulmonary embolism: Qualifiers: Acute cor pulmonale presence: without acute cor pulmonale Chronicity: acute Pulmonary embolism type: other Qualified Code(s): I26.99 - Other pulmonary embolism without acute cor pulmonale <PREET Dozier - Last Filed: 01/16/22 14:01> Code(s): I26.99 - Other pulmonary embolism without acute cor pulmonale <PREET Dozier - Last Filed: 01/16/22 14:01> Status: Acute <PREET Dozier - Last Filed: 01/16/22 14:01> Assessment and Plan: Acute bilateral pulmonary embolism noted on CT angiogram of the chest resulting in abrupt acute respiratory distress, tachycardia and elevated troponin in the setting of a COVID positive status. Systemic a/c has been initiated, transition to oral a/c at the discretion of primary service. Awaiting echo results Given degree of troponin elevation can not exclude underlying CAD. However given presentation concern for RV strain/dysfunction <PREET Dozier - Last Filed: 01/16/22 14:01> (2) Elevated troponin: Code(s): R77.8 - Other specified abnormalities of plasma proteins <PREET Dozier - Last Filed: 01/16/22 14:01> Status: Acute <PREET Dozier - Last Filed: 01/16/22 14:01> Assessment and Plan: Most likely type 2 infarction secondary to acute bilateral PE in setting of a COVID acute respiratory distress less likely secondary to acute coronary syndrome and/or plaque rupture. Cannot exclude underlying CAD and demand ischemia in this regard. Ischemic evaluation the future appropriate given patient's multiple risk factors for underlying CAD if patient agrees. Aspirin 81 mg daily as tolerated. As statin therapy. Check lipid panel. <PREET Dozier - Last Filed: 01/16/22 14:01> (3) Acute respiratory distress: Code(s): R06.03 - Acute respiratory distress <PREET Dozier - Last Filed: 01/16/22 14:01> Status: Acute <PREET Dozier - Last Filed: 01/16/22 14:01> Assessment and Plan: As above secondary to acute PE in setting of COVID. Management per primary service. O2 supplementation, bronchodilator therapy, systemic anticoagulation. <PREET Dozier - Last Filed: 01/16/22 14:01> (4) COVID: Code(s): U07.1 - COVID-19 <PREET Dozier - Last Filed: 01/16/22 14:01> Status: Acute <PREET Dozier - Last Filed: 01/16/22 14:01> Assessment and Plan: Continue isolation. Management per primary service. <PREET Dozier - Last Filed: 01/16/22 14:01> (5) Essential (primary) hypertension: Code(s): I10 - Essential (primary) hypertension <PREET Dozier - Last Filed: 01/16/22 14:01> Status: Acute <PREET Dozier - Last Filed: 01/16/22 14:01> Assessment and Plan: BP stable, variable. Continue close observation. <PREET Dozier - Last Filed: 01/16/22 14:01> (6) Type 2 diabetes mellitus with hyperglycemia, without long-term current use of insulin: Code(s): E11.65 - Type 2 diabetes mellitus with hyperglycemia <PREET Dozier - Last Filed: 01/16/22 14:01> Status: Acute <PREET Dozier - Last Filed: 01/16/22 14:01> Assessment and Plan: Per primary service. <PREET Dozier - Last Filed: 01/16/22 14:01> (7) CKD (chronic kidney disease) stage 3, GFR 30-59 ml/min: Qualifiers: Chronic kidney disease stage 3 subtype: stage 3a (GFR 45-59) Qualified Code(s): N18.31 - Chronic kidney disease, stage 3a <PREET Dozier - Last Filed: 01/16/22 14:01> Code(s): N18.3 - Chronic kidney disease, stage 3 (moderate) <PREET Dozier - Last Filed: 01/16/22 14:01> Status: Acute <PREET Dozier - Last Filed: 01/16/22 14:01> Assessment and Plan: Stable, monitor closely, monitor electrol
[2022-01-16 12:00] VITALS: PULSE 104
[2022-01-16 12:08] LABS: Glucose Point of Care 254 mg/dl (65-105)
--- NOTE | 2022-01-16 15:01 | ECHO_ITS ---
Patient Info Name: Serene Humphreys Age: 66 years : 1955 Gender: Female Ht: 62 in Wt: 234 lbs BSA: 2.22 m2 HR: 54 bpm BP: 112 / 77 mmHg Exam Date: 01/16/2022 12:22 PM Exam Location: [facility] Patient Status: Outpatient Admit Date: 01/14/2022 Staff Ordering Physician: Ozzy Martínez MD Neonatal Nurse Practitioner: Miguel Ángel Conti, LUIS MIGUEL, RT Attending Provider: Tana Wu MD Referring Physician: Mauricio KIDD; Exam Type: CA echo doppler color flow Study Info Indications I26.09 - Other pulmonary embolism with acute cor pulmonale Complete two-dimensional, color flow and Doppler transthoracic echocardiogram is performed. Strain analysis performed. Summary 1. Complete two-dimensional, color flow and Doppler transthoracic echocardiogram is performed. 2. Normal LV size, sigmoid hypertrophy. LV systolic dysfunction with segmental wall motion abnormality. Distal anterolateral, apical, distal inferoseptal segments are akinetic; basal segments are hyperkinetic; ejection fraction about 30-35%. Global longitudinal strain is abnormal at -5%. Normal mitral valve structure, no significant MR. 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 Unable to assess RVSP due to inadequate TR jet. Left Ventricle Left ventricular chamber dimension is normal. Left ventricular systolic function is severely reduced, estimated at 30-35%. Right Ventricle Right ventricular chamber dimension is normal. Right ventricular systolic function is normal. Left Atria Left atrial chamber dimension is normal. Right Atria Right atrial chamber dimension is normal. Aortic Valve There is moderate aortic valve sclerosis. There is no aortic valve stenosis. Pulmonic Valve The pulmonic valve is not well visualized. Mitral Valve The mitral valve has normal leaflets. There is no mitral valve regurgitation. Tricuspid Valve The tricuspid valve leaflets are not well visualized. Pericardium/Pleural The pericardium appears epicardial fat pad. Aorta The aortic root size at the sinus of Valsalva is normal. Left Ventricular Outflow Tract Name Value Normal LVOT 2D LVOT Diameter 2.0 cm LVOT Doppler LVOT Peak Gradient 9 mmHg LVOT Mean Gradient 6 mmHg LVOT VTI 24 cm LVOT VTI/AV VTI Ratio 1.0 LVOT Stroke Volume 73 ml LVOT CO 7.4 l/min LVOT CI 3.3 l/min/m2 Mitral Valve Name Value Normal MV Doppler MV Decel Johnson 843 cm/s2 MV PHT 31 ms MV Area (PHT) 7.0 cm2 4.0-5.0 MV Diastolic Function
--- NOTE | 2022-01-16 18:40 | PCCCNOTE ---
Called by safety attendant Abby that daughter had called was at the pharmacy to fern picker medication but it needed a prior auth or would cost patient 700 dollars. Called to [facility] and spoke with pharmacist, she states that the insurance will only accept prior auth from the requesting provider to show medical necessity. Asks companion caregiver to call possible xarelto and what dose. Called to Dr. Wu, she advises for companion caregiver to proceed with prior auth. for Eliquis and confirms 10mg BID for 7 days followed by 5mg BID. Called back to pharmacy asked about phone number or form to complete, per pharmacy teacher, when they ran it through again it went through without issue. Called back to Kendal Do RN to inform.
== END 2022-01-16 15:20 | disposition home or self-care (01) ==
LOC: ANHED 17:04 → ANHIMU 17:36 → ANH3MEDSUR 01-15 13:14
PROVIDERS: Nurse Practitioner Adult Health; Admitting Provider Family Medicine; Emergency Provider Emergency Medicine; PCP Family Medicine; Visit Provider Family Medicine
DX: J44.1 Chronic obstructive pulmonary disease with (acute) exacerbation (principal); U07.1 COVID-19; I26.99 Other pulmonary embolism without acute cor pulmonale; R06.03 Acute respiratory distress; E78.5 Hyperlipidemia, unspecified; E66.9 Obesity, unspecified; Z68.41 Body mass index [BMI] 40.0-44.9, adult; N18.31 Chronic kidney disease, stage 3a; I12.9 Hypertensive chronic kidney disease with stage 1 through stage 4 chronic kidney disease, or unspecified chronic kidney disease; E11.22 Type 2 diabetes mellitus with diabetic chronic kidney disease; F17.210 Nicotine dependence, cigarettes, uncomplicated; E11.65 Type 2 diabetes mellitus with hyperglycemia; G25.81 Restless legs syndrome
CPT/HCPCS: 36415; 71045; 71275; 80048; 80053; 80061; 81001; 82565; 82728; 82948; 83735; 83880; 84460; 84484; 85025; 85380; 85610; 85730; 86140; 93005; 93306; 94002; 94640; 96365; 96372; 96374; 96375; 99285; A9270; C9803; G0378; J0248; J1100; J1650; J1815; J2060; J2930; Q9967; U0003; U0005

== ENCOUNTER 2023-03-08 06:20 | Emergency (ER) | payer OTHER, SELFPAY ==
[2023-03-08] VITALS (8 sets, daily range): BP systolic 129–149; BP diastolic 63–95; PULSE 70–86; RESP 20–25; TEMP 36.6; O2SAT 92–94
--- NOTE | ~2023-03-08 | XR_ITS ---
Portable chest x-ray Comparison: 01/14/2022 Clinical History: Shortness of breath Findings: Possible minimal bibasilar interstitial edema. No pleural effusion or pneumothorax. Cardi omediastinal silhouette is stable. Bones and soft tissues are unremarkable. Impression: Possible minimal bibasilar interstitial pulmonary edema. Reviewed, dictated and finalized at [facility] [place]. Impression: Possible minimal bibasilar interstitial pulmonary edema.
--- NOTE | 2023-03-08 07:44 | ED.SOB ---
HPI - SOB/Dyspnea General Chief Complaint: Shortness of Breath/Dyspnea Time Seen by Provider: 03/08/23 07:43 History of Present Illness HPI Narrative: This is a 68-year-old female, with past history of CKD, hypertension and diabetes, from home by EMS for shortness of breath. Patient was tachypneic and wheezing on arrival. Pulse ox 88% on room air. She was started on 3 L O2 nasal cannula with improvement to 95%. The patient denies any recent change in medications or health. She denies known sick contacts. She now states her breathing is improved after a breathing treatment. She denies chest pain, nausea, vomiting, abdominal pain, weakness or numbness. Related Data Home Medications Medication Instructions Recorded Confirmed lancets 31 gauge 09/25/22 Allergies Allergy/AdvReac Type Severity Reaction Status Date / Time Sulfa (Sulfonamide Allergy Unknown Unknown Verified 01/31/22 13:06 Antibiotics) Review of Systems Review of Systems: CONSTITUTIONAL: Denies fever, chills, or sweats. ENT: Denies rhinorrhea, congestion, sore throat, or otalgia. CARDIOVASCULAR: Denies chest pain, palpitations, or edema. RESPIRATORY: Dyspnea and cough now improved GASTROINTESTINAL: Denies abdominal pain, nausea, vomiting, or diarrhea. GENITOURINARY: Denies dysuria or hematuria. SKIN: Denies rash or itching. MUSCULOSKELETAL: Denies back pain, joint pain, or myalgia. NEUROLOGIC: Denies headache, numbness, dizziness, or weakness. PSYCHIATRIC: Denies anxiety or depression. [facility] Past Medical History Medical History (Updated 03/08/23 @ 09:44 by Devin Olmstead MD) CKD (chronic kidney disease) stage 3, GFR 30-59 ml/min Dyslipidemia Essential (primary) hypertension Hypertension On joint terminal attack controller drug therapy RLS (restless legs syndrome) Type 2 diabetes mellitus with hyperglycemia, without long-term current use of insulin Unspecified osteoarthritis, unspecified site Urge incontinence of urine Social History Social History Smoking packs per day: 0.5 Smoking cigarettes per day: 10.0 Years smoked: 42 Smoking pack-years: 21.00 Smoking status: Former smoker Tobacco type: cigarettes Second hand tobacco smoke exposure: No Smoking end date: 08/19/19 Alcohol intake: never Substance use: never Substance use type: does not use Gender identity (if verbalized by the patient): Female Spiritual care concerns: Yes Exam Narrative: GENERAL: Well-developed, well-nourished, and in no acute distress. HEAD: Normocephalic, atraumatic. EYES: PERRLA and EOMI. ENT: Nares clear, no rhinorrhea or epistaxis. Mucous membranes moist. Oropharynx without tonsillar hypertrophy exudate or other lesions. NECK: Supple. No adenopathy or masses. No JVD CHEST: Clear to auscultation. No respiratory distress. No wheezes rales or rhonchi HEART: Regular rate and rhythm. No murmur heard. Normal peripheral pulses. ABDOMEN: Soft, nontender, nondistended, normal active bowel sounds. EXTREMITIES: Normal range of motion. Trace bilateral lower extremity edema SKIN: Warm, dry, no rash. NEURO: No focal deficits. Alert and oriented x3. PSYCH: Normal mood and affect. Course Course Emergency Course: 09:11 - The patient now wants to go home. CBC demonstrates an elevated white blood cell count of 16. Chest x-ray demonstrates Possible minimal bibasilar interstitial pulmonary edema. Age-adjusted D-dimer negative. Chemistries demonstrate potassium elevation of 5.2. Creatinine elevated to 1.3 with baseline between 1.2 and 1.4. Troponin negative BNP mildly elevated at 4.96. The patient tested negative for COVID. After a breathing treatment, she states her breathing is improved. She is on room air satting between 92 to 95%. Chart review, shows the patient had an echocardiogram in December 2021 that demonstrated systolic heart failure with an EF of 30 to 35%. As patient refuses to stay ,
[2023-03-08 08:00] LABS: Glucose Point of Care 183 mg/dl (65-105)
[2023-03-08 09:10] LABS: Alanine Aminotransferase 19 U/L (6-35); Albumin Level 4.4 g/dL (3.5-5.1); Alkaline Phosphatase 79 U/L (38-126); Anion Gap 12 mmol/L (8-16); Aspartate Amino Transferase 22 U/L (14-36); Bilirubin,Total 0.5 mg/dL (0.2-1.3); Blood Urea Nitrogen 29 mg/dL (7-17); Calcium 9.9 mg/dL (8.4-10.2); Carbon Dioxide 21 mmol/L (22-30); Chloride 105 mmol/L (98-107); Estimated Glomerular Filt Rate 40; Glucose 184 mg/dL (65-110); NT Pro B Type Natriuretic Pept 496 pg/mL (19.9-100); Potassium 5.2 mmol/L (3.4-5.0); Sodium 138 mmol/L (137-145); Troponin I < 0.012 ng/mL (0.000-0.034)
[2023-03-08 09:11] LABS: Hematocrit 40.4 % (37.0-47.0); Hemoglobin 12.2 g/dL (12.0-15.0); INR 1.2; Mean Corpuscular HGB Conc 30.2 g/dl (32-36); Mean Corpuscular Volume 92.7 fl (80-100); Mean Platelet Volume 10.4 fl (7.4-10.4); Platelet Count Result 363 k/mm3 (150-375); Prothrombin Time 15.9 Seconds (11.1-14.7); Red Blood Count 4.36 M/mm3 (4.2-5.4); Red Cell Distribution Width 12.5 % (11.5-14.5); White Blood Count 16.5 K/mm3 (4.5-10.0)
[2023-03-08 09:11] LABS: Influenza A QL RT-PCR Negative (Negative); Influenza B QL RT-PCR Negative (Negative); SARS-CoV-2 RNA PCR Negative (Negative)
--- NOTE | 2023-03-08 09:45 | ECG_ITS ---
Measurements Intervals [place] Rate: 83 P: 26 IA: 171 QRS: 1 QRSD: 118 T: 53 QT: 338 QTc: 399 Interpretive Statements SINUS RHYTHM INTRAVENTRICULAR CONDUCTION DELAY LOW QRS VOLTAGE IN PRECORDIAL LEADS BASELINE ARTIFACT- I, II, III, AVR, AVL, AVF, V1-V6 BORDERLINE ECG COMPARED TO ECG 01/16/2022 09:07:25 SINUS RHYTHM NOW PRESENT INTRAVENTRICULAR CONDUCTION DELAY NOW PRESENT Electronically Signed On 03-08-2023 11:03:48 CDT by Lui Ceron D.O.
== END 2023-03-08 09:53 | disposition home or self-care (01) ==
PROVIDERS: Emergency Provider Preventive Medicine Aerospace Medicine; PCP Family Medicine
DX: J81.0 Acute pulmonary edema (principal); E87.5 Hyperkalemia; Z20.822 Contact with and (suspected) exposure to COVID-19; I12.9 Hypertensive chronic kidney disease with stage 1 through stage 4 chronic kidney disease, or unspecified chronic kidney disease; E11.22 Type 2 diabetes mellitus with diabetic chronic kidney disease; N18.30 Chronic kidney disease, stage 3 unspecified; E78.5 Hyperlipidemia, unspecified; G25.81 Restless legs syndrome; N39.41 Urge incontinence; M19.90 Unspecified osteoarthritis, unspecified site; Z87.891 Personal history of nicotine dependence; Z79.82 Long term (current) use of aspirin; Z79.01 Long term (current) use of anticoagulants; Z79.84 Long term (current) use of oral hypoglycemic drugs; I45.9 Conduction disorder, unspecified
CPT/HCPCS: 36415; 71045; 80053; 82948; 83880; 84484; 85027; 85380; 85610; 87636; 93005; 94640; 99284

== ENCOUNTER 2023-05-30 13:18 | Outpatient (CLI) | payer OTHER, SELFPAY ==
[2023-05-30 19:19] LABS: Alanine Aminotransferase 21 U/L (6-35); Albumin Level 3.7 g/dL (3.5-5.1); Alkaline Phosphatase 50 U/L (38-126); Anion Gap 8 mmol/L (8-16); Aspartate Amino Transferase 31 U/L (14-36); Bilirubin,Total 0.5 mg/dL (0.2-1.3); Blood Urea Nitrogen 31 mg/dL (7-17); Calcium 9.4 mg/dL (8.4-10.2); Carbon Dioxide 30 mmol/L (22-30); Chloride 100 mmol/L (98-107); Estimated Glomerular Filt Rate 32; Glucose 222 mg/dL (65-110); Potassium 4.9 mmol/L (3.4-5.0); Sodium 138 mmol/L (137-145)
== END 2023-05-30 13:19 | disposition home or self-care (01) ==
PROVIDERS: PCP Family Medicine; Visit Provider Family Medicine
DX: N18.31 Chronic kidney disease, stage 3a (principal); I10 Essential (primary) hypertension
CPT/HCPCS: 36415; 80053

== ENCOUNTER 2025-06-13 09:45 | Emergency (ER) | payer OTHER, SELFPAY ==
[2025-06-13 09:56] VITALS: BP 130/50; PULSE 68; RESP 16; TEMP 36; O2SAT 100
--- NOTE | 2025-06-13 10:07 | ED_ITS ---
HPI - Skin/Abscess/Foreign Bdy General Chief complaint: Skin/Abscess/Foreign Body Stated complaint: ulcer L Leg Patient presents to the Express [facility] accompanied by spouse and family with complaints of continued weeping, open wound, and swelling to back of left lower leg. Patient recently completed amoxicillin for dental pain and also increased swelling and the pain to both lower legs. Right lower leg back to baseline, dental pain resolved. Patient has also had intermittent low blood sugars over the last several weeks today woke up in the middle of the night with low blood sugar 911 was called and they started an IV and gave her glucose noted her blood sugar was 40. Now it is improved but patient reports eating candy because she feels like it can drop again. Patient declines going to the emergency room with EMS. Patient was told by EMS she should go to the urgent care to get on another round of antibiotics due to the low leg wound. Denies fever, chills, body aches, dizziness. Related Data Home Medications ?Medication ?Instructions ?Recorded ?Confirmed ?Last Taken ?Type lancets 31 gauge 09/25/22 Unknown History Allergies Allergy/AdvReac Type Severity Reaction Status Date / Time Sulfa (Sulfonamide Allergy Unknown Unknown Verified 01/31/22 13:06 Antibiotics) Review of Systems Constitutional: Constitutional: Reports as per HPI, Denies chills, Denies fatigue, Denies fever(s) and Denies weakness Eyes: Eyes: Reports no additional eye complaints Cardiovascular: Cardiovascular: Reports no additional cardiovascular complaints Respiratory: Respiratory: Reports no additional respiratory complaints Gastrointestinal: Gastrointestinal: Reports no additional gastrointestinal complaints Genitourinary: Genitourinary: Reports no additional female genitourinary complaints Musculoskeletal: Musculoskeletal: Reports as per HPI, Reports arthralgias and Reports joint swelling Integumentary/Breasts: Skin/Breast: Reports as per HPI, Reports erythema, Denies rash and Reports skin ulcer Comments: left lower leg Neurologic: Reports as per HPI, Denies numbness and Denies weakness Psychiatric: Psychiatric: Reports no additional psychiatric complaints Endocrine: Endocrine: Reports as per HPI Comments: Intermittent low blood sugars Hematologic/Lymphatic: Hematologic/Lymphatic: Reports no additional hematologic/lymphatic complaints Allergic/Immunologic: Allergic/Immunologic: Reports no additional allergic/immunologic complaints [facility] Past Medical History Medical History (Updated 06/13/25 @ 10:09 by Tayler Osorio, MACHINE [employer]UBER, ARTIST REPRESENTATIVE-C) Hypertension Dyslipidemia On intermediate designer drug therapy Type 2 diabetes mellitus with hyperglycemia, without long-term current use of insulin Unspecified osteoarthritis, unspecified site Essential (primary) hypertension RLS (restless legs syndrome) Urge incontinence of urine CKD (chronic kidney disease) stage 3, GFR 30-59 ml/min Social History Social History Smoking packs per day: 0.5 Smoking cigarettes per day: 10.0 Years smoked: 42 Smoking pack-years: 21.00 Smoking status: Former smoker Tobacco type: cigarettes Second hand tobacco smoke exposure: No Smoking end date: 08/19/19 Alcohol intake: never Substance use: never Substance use type: does not use Gender identity (if verbalized by the patient): Female Spiritual care concerns: Yes Exam Const: General: healthy appearing and no acute distress Nutritional Appearance: well nourished Orientation/consciousness: patient oriented x3 Limitations: no limitations Resp: Effort & Inspection: normal respiratory effort Auscultation: clear to auscultation bilaterally Cardio: Rate: regular rate Rhythm: regular rhythm Skin: General skin exam: normal color Rashes: no rashes Wounds: wounds noted Other: moderate to severe diffuse pitting edema to left lower leg with chronic lichenification to anterior and yellow colored weeping noted posterior- large circular 3 cm in diameter open wound noted to posterior leg. White colored bed with mild warmth noted. No streaking. right lower leg [id number] diffuse pitting edema with chronic lichenification and no open wounds or weeping noted. Remove pressure dressing to left forearm no bleeding noted, diffuse bruising over the area. Replaced large pressure dressing with smaller pressure dressing. Neuro: General: patient oriented x3 Speech: normal speech Gait exam (Neuro): gait abnormal (in wheelchair ) Extrem: Right lower extremity: lower leg Details: tenderness and pitting edema; no unusual warmth Left lower extremity: lower leg Details: erythema, tenderness, pitting edema, warmth and other (wound posterior leg, weeping ) Psych: Mental Status: mental status grossly normal Affect: normal affect Attitude: cooperative Course Course Level of Care: Express Care Visit Vital Signs Vital signs: Vital Signs Temperature 96.8 F L 06/13/25 09:56 Pulse Rate 68 06/13/25 09:56 Respiratory Rate 16 06/13/25 09:56 Blood Pressure 130/50 L 06/13/25 09:56 Pulse Oximetry 100 06/13/25 09:56 Temperature 96.8 F L 06/13/25 09:56 Pulse Rate 68 06/13/25 09:56 Respiratory Rate 16 06/13/25 09:56 Blood Pressure 130/50 L 06/13/25 09:56 Pulse Oximetry 100 06/13/25 09:56 MDM - Skin/Abscess/Foreign Bdy MDM Narrative Medical decision making narrative: spoke with patient about medications. With significant lows frequently would recommend stopping the glimepiride at this and follow-up with primary care physician. Also recommended follow-up may need wound care referral will place patient on doxycycline due to sulfa allergy and recent treatment with amoxicillin. [facility] History is obtained from patient who is an independent historian and physical exam was performed. Available medical records were reviewed at this time. Exam findings show no acute concerns or changes; patient is non-toxic appearing and is in no distress. Patient is appropriate for outpatient treatment and follow-up. I have evaluated and discussed social determinants of health with the patient that could potentially impact subsequent diagnosis and treatment plans. Differential diagnosis and treatment plan were discussed with the patient. Patient agrees with discussion and after shared medical decision making agrees with plan of care. All questions were answered to the patient's satisfaction. Differential Diagnosis Differential diagnosis: Likely abscess of skin or subcutaneous tissue, urticaria, cellulitis, eczema, impetigo and contact dermatitis Medical Records Attestation: I reviewed the patient's medical records. Discharge Plan Discharge Clinical Impression: Cellulitis of left lower leg Patient Disposition: Home Condition: Stable Instructions: Antibiotic Form, Cellulitis (ED) Additional Instructions: Clean with soap and water only; Avoid using alcohol and peroxide. Elevate the affected area if possible Alternate Tylenol/ibuprofen for as needed for pain Acetaminophen(Tylenol) 650- 1000mg every 4-6hours with max of 4000mg/day. Nonsteroidal anti-inflammatory agent (NSAIDs-ibuprofen): 400mg every 4-6hours with max 2400mg/day Take antibiotic until it's gone. Please schedule a follow up visit with your personal physician for further evaluation and treatment within 3-5days OR if your symptoms persist, change or worsen significantly before you can contact your personal physician then please, without delay, go to the emergency department for further evaluation. Patient Language: Burundian Prescriptions: New doxycycline monohydrate 100 mg capsule 100 mg PO BID Qty: 20 0RF No Action aspirin 81 mg Tablet,Delayed Release (Dr/Ec) 81 mg PO QAM Qty: 30 0RF (DME) blood-glucose meter [Contour Next Meter] Misc See Rx Instructions .Route Qty: 1 0RF Rx Instructions: Use to check BS once daily. (DME) lancets 31 gauge misc See Rx Instructions .ROUTE Rx Instructions: Use to check BS once daily cholecalciferol (vitamin D3) 50 mcg (2,000 unit) capsule 50 mcg PO DAILY Qty: 90 2RF (DME) lancing device with lancets [Microlet Next Lancing Device] Kit See Rx Instructions .ROUTE .COMPLEX Qty: 1 3RF Dose Instruction: USE TO CHECK BLOOD SUGAR ONCE DAILY Rx Instructions: USE TO CHECK BLOOD SUGAR ONCE DAILY oxybutynin chloride 5 mg tablet 5 mg PO TID Qty: 270 1RF lisinopril 10 mg tablet See Rx Instructions .ROUTE .COMPLEX Qty: 90 3RF Dose Instruction: TAKE 1 TABLET BY MOUTH DAILY Rx Instructions: TAKE 1 TABLET BY MOUTH DAILY verapamil 180 mg tablet extended release See Rx Instructions .ROUTE .COMPLEX Qty: 180 3RF Dose Instruction: TAKE 2 TABLETS BY MOUTH DAILY Rx Instructions: TAKE 2 TABLETS BY MOUTH DAILY Eliquis 5 mg tablet 5 mg PO BID Qty: 180 1RF metformin 500 mg tablet extended release 24 hr 2,000 mg PO DAILY Qty: 360 1RF Rx Instructions: With evening meal (DME) OneTouch Ultra Test Strip See Rx Instructions .Route Qty: 100 3RF Rx Instructions: Use to check BS once daily. albuterol sulfate 90 mcg/actuation HFA aerosol inhaler 2 puff inhalation QID PRN (Reason: shortness of breath or wheezing) Qty: 34 1RF glimepiride 2 mg tablet 2 mg PO DAILY Qty: 90 1RF fenofibrate 160 mg tablet See Rx Instructions .ROUTE .COMPLEX Qty: 90 1RF Dose Instruction: TAKE 1 TABLET BY MOUTH DAILY Rx Instructions: TAKE 1 TABLET BY MOUTH DAILY furosemide [Lasix] 20 mg tablet 20 mg PO DAILY Qty: 90 0RF celecoxib 100 mg capsule 100 mg PO DAILY Qty: 90 1RF tramadol 50 mg tablet 50 mg PO BID PRN (Reason: pain) Qty: 60 2RF Follow-up/Referrals: Marcos Cooper MD [Primary Care Provider, Family Practice] Time of Disposition: 10:10
== END 2025-06-13 10:15 | disposition home or self-care (01) ==
PROVIDERS: Emergency Provider Nurse Practitioner Family; PCP Family Medicine
DX: L03.116 Cellulitis of left lower limb (principal); I12.9 Hypertensive chronic kidney disease with stage 1 through stage 4 chronic kidney disease, or unspecified chronic kidney disease; E11.22 Type 2 diabetes mellitus with diabetic chronic kidney disease; N18.30 Chronic kidney disease, stage 3 unspecified; Z79.4 Long term (current) use of insulin; E78.5 Hyperlipidemia, unspecified; M19.90 Unspecified osteoarthritis, unspecified site; G25.81 Restless legs syndrome; Z87.891 Personal history of nicotine dependence
CPT/HCPCS: 99213; G0463

== ENCOUNTER 2025-07-04 09:14 | Emergency (ER) | payer OTHER, SELFPAY ==
--- NOTE | 2025-07-04 09:27 | ED.WOUNDLAC ---
HPI - Wound/Laceration General Chief Complaint: Wound/Laceration Stated Complaint: c/o left leg ulcer Time Seen by Provider: 07/04/25 09:27 Source: patient Mode of arrival: ambulatory Limitations: no limitations History of Present Illness HPI narrative: Serene is a 70 year old female patient presenting to the clinic today with c/o left leg ulcer/wound x 2 weeks. She reports wound is looking better after taking doxycycline. Is wanting another prescription for doxycycline and possible a topical antibiotic. She is getting ready to leave for vacation to [place] for 3 months. Contacted her PCP and they told her to come to the urgent care to get another prescription. Denies any fever, chills, or body aches. Related Data Home Medications ?Medication ?Instructions ?Recorded ?Confirmed ?Last Taken ?Type lancets 31 gauge 09/25/22 Unknown History biotin 1 mg tablet 1 mg PO DAILY 07/04/25 07/04/25 Unknown History meloxicam 7.5 mg tablet 7.5 mg PO DAILY 07/04/25 07/04/25 Unknown History Allergies Allergy/AdvReac Type Severity Reaction Status Date / Time Sulfa (Sulfonamide Allergy Unknown Unknown Verified 07/04/25 09:35 Antibiotics) Review of Systems Review of Systems: Pertinent positives per HPI. Patient denies any fever, chills, rash, headache, visual changes, dizziness, cough, runny nose, sore throat, shortness of breath, chest pain, palpitations, nausea, vomiting, diarrhea, constipation, abdominal pain, or any urinary issues. [facility] Past Medical History Medical History (Updated 07/04/25 @ 10:00 by Chema Dong APRN) Hypertension Dyslipidemia On custodial drug therapy Type 2 diabetes mellitus with hyperglycemia, without long-term current use of insulin Unspecified osteoarthritis, unspecified site Essential (primary) hypertension RLS (restless legs syndrome) Urge incontinence of urine CKD (chronic kidney disease) stage 3, GFR 30-59 ml/min Social History Social History Smoking packs per day: 0.5 Smoking cigarettes per day: 10.0 Years smoked: 42 Smoking pack-years: 21.00 Smoking status: Former smoker Tobacco type: cigarettes Second hand tobacco smoke exposure: No Smoking end date: 08/19/19 Alcohol intake: never Substance use: never Substance use type: does not use Gender identity (if verbalized by the patient): Female Spiritual care concerns: Yes Comments At the time of my signature, I reviewed and agree with the nursing past medical, surgical, social, and family history. There is no relevant family history pertinent to the patient complaint. Exam Narrative: General: Well-developed, obese, in no apparent distress Head: Normocephalic, atraumatic. Cardio: Regular rate and rhythm, s1 and s2 normal, no murmur appreciated. Resp: Crackles in the bases, no rhonchi, wheezing or rubs. Integumentary: [place], warm, and dry, left lower leg redness, swelling, 3+ pitting edema, 12 x 6 cm open exudative wound to the left posterior/lateral lower leg. Wound culture obtained Course Course Emergency Course: Portions of this record may have been created with voice recognition software. Level of Care: Express Care Visit Vital Signs Vital signs: Vital Signs Temperature 36.4 C L 07/04/25 09:35 Pulse Rate 75 07/04/25 09:35 Respiratory Rate 16 07/04/25 09:35 Blood Pressure 143/54 H 07/04/25 09:35 Pulse Oximetry 100 07/04/25 09:35 Oxygen Delivery Room Air 07/04/25 09:35 Temperature 36.4 C L 07/04/25 09:35 Pulse Rate 75 07/04/25 09:35 Respiratory Rate 16 07/04/25 09:35 Blood Pressure 143/54 H 07/04/25 09:35 Pulse Oximetry 100 07/04/25 09:35 Oxygen Delivery Room Air 07/04/25 09:35 Vital signs reviewed MDM - Wound/Laceration MDM Narrative Medical decision making narrative: At the time of visit patient is resting comfortably on the exam table. Patient appears to be nontoxic. C/o left leg ulcer/wound x 2 weeks. She reports wound is looking better after taking doxycycline. Is wanting another prescription for doxycycline and possible a topical antibiotic. She is getting ready to leave for vacation to [place] for 3 months. Contacted her PCP and they told her to come to the urgent care to get another prescription. Denies any fever, chills, or body aches. On exam patient has left lower leg redness, swelling, 3+ pitting edema, 12 x 6 cm exudative wound to the left posterior/lateral lower leg. Right leg with 2 to 3+ pitting edema. Wound culture obtained. Labs: Wound culture was obtained. Plan: I suspect patient has left lower leg cellulitis with wound infection. Patient is diabetic. Has been on a round of doxycycline and this improved the wound in the redness. Still has significant redness and 3+ pitting edema in the lower extremity. Recommend transfer to the ER for further evaluation-may need admission with IV antibiotics. Patient and family declined. They are planning to leave for [place] of this afternoon. They are only requesting oral antibiotics and possibly a topical antibiotic as discussed with their PCP. Risk and benefits were reviewed with the patient the family and they voiced understanding. Prescription for doxycycline and mupirocin cream was sent to the pharmacy. Patient/family plans to establish care and for for further treatment of the leg cellulitis/wound. Differential Diagnosis Differential diagnosis: Likely other (Wound, cellulitis, sepsis) Discharge Plan Discharge Clinical Impression: Cellulitis of left leg, Wound infection Patient Disposition: Home Condition: Stable Instructions: Antibiotic Form, Wound Infection (ED), Cellulitis (ED) Additional Instructions: Wound culture obtained in the clinic today. Recommend going to the ED for further evaluation and you declined. ER would be able to obtain lab work, give iv antibiotics, and admission with wound care consult. Risk of infection/cellulitis if not treated appropriately may include loss of limb, sepsis, worsening of condition, disability, and . Will send in Rx for doxycycline and mupirocin. Recommend close follow up with primary care provider and referral to wound clinic. May take Tylenol as needed for pain/fever as directed Keep legs elevated as much as possible Go to the emergency room if your symptoms worsen-you develop fever, weakness, chest pain, shortness of breath, increase in swelling, increase in pain, increase in redness, streaking, or any other concerning symptoms Patient Language: Macedonian Prescriptions: New doxycycline hyclate 100 mg capsule 100 mg PO BID 10 Days Qty: 20 0RF mupirocin [Centany] 2 % ointment 1 applic topical BID 7 Days Qty: 22 0RF No Action doxycycline monohydrate 100 mg capsule 100 mg PO BID Qty: 20 0RF meloxicam 7.5 mg tablet 7.5 mg PO DAILY biotin 1 mg tablet 1 mg PO DAILY aspirin 81 mg Tablet,Delayed Release (Dr/Ec) 81 mg PO QAM Qty: 30 0RF (DME) blood-glucose meter [Contour Next Meter] Misc See Rx Instructions .Route Qty: 1 0RF Rx Instructions: Use to check BS once daily. (DME) lancets 31 gauge misc See Rx Instructions .ROUTE Rx Instructions: Use to check BS once daily cholecalciferol (vitamin D3) 50 mcg (2,000 unit) capsule 50 mcg PO DAILY Qty: 90 2RF (DME) lancing device with lancets [Microlet Next Lancing Device] Kit See Rx Instructions .ROUTE .COMPLEX Qty: 1 3RF Dose Instruction: USE TO CHECK BLOOD SUGAR ONCE DAILY Rx Instructions: USE TO CHECK BLOOD SUGAR ONCE DAILY oxybutynin chloride 5 mg tablet 5 mg PO TID Qty: 270 1RF lisinopril 10 mg tablet See Rx Instructions .ROUTE .COMPLEX Qty: 90 3RF Dose Instruction: TAKE 1 TABLET BY MOUTH DAILY Rx Instructions: TAKE 1 TABLET BY MOUTH DAILY verapamil 180 mg tablet extended release See Rx Instructions .ROUTE .COMPLEX Qty: 180 3RF Dose Instruction: TAKE 2 TABLETS BY MOUTH DAILY Rx Instructions: TAKE 2 TABLETS BY MOUTH DAILY Eliquis 5 mg tablet 5 mg PO BID Qty: 180 1RF metformin 500 mg tablet extended release 24 hr 2,000 mg PO DAILY Qty: 360 1RF Rx Instructions: With evening meal (DME) OneTouch Ultra Test Strip See Rx Instructions .Route Qty: 100 3RF Rx Instructions: Use to check BS once daily. albuterol sulfate 90 mcg/actuation HFA aerosol inhaler 2 puff inhalation QID PRN (Reason: shortness of breath or wheezing) Qty: 34 1RF glimepiride 2 mg tablet 2 mg PO DAILY Qty: 90 1RF fenofibrate 160 mg tablet See Rx Instructions .ROUTE .COMPLEX Qty: 90 1RF Dose Instruction: TAKE 1 TABLET BY MOUTH DAILY Rx Instructions: TAKE 1 TABLET BY MOUTH DAILY furosemide [Lasix] 20 mg tablet 20 mg PO DAILY Qty: 90 0RF celecoxib 100 mg capsule 100 mg PO DAILY Qty: 90 1RF tramadol 50 mg tablet 50 mg PO BID PRN (Reason: pain) Qty: 60 2RF Follow-up/Referrals: Marcos Cooper MD [Primary Care Provider, Family Practice] Time of Disposition: 10:01 Quality NIHSS Nursing Documentation ED NIHSS nursing documentation: reviewed/agree
[2025-07-04 09:35] VITALS: BP 143/54; PULSE 75; RESP 16; TEMP 36.4; O2SAT 100
== END 2025-07-04 10:09 | disposition home or self-care (01) ==
PROVIDERS: Emergency Provider Nurse Practitioner Family; PCP Family Medicine
DX: S81.802D Unspecified open wound, left lower leg, subsequent encounter (principal); L03.116 Cellulitis of left lower limb; X58.XXXD Exposure to other specified factors, subsequent encounter; I12.9 Hypertensive chronic kidney disease with stage 1 through stage 4 chronic kidney disease, or unspecified chronic kidney disease; N18.30 Chronic kidney disease, stage 3 unspecified; E11.9 Type 2 diabetes mellitus without complications; Z79.85 Long-term (current) use of injectable non-insulin antidiabetic drugs; E78.5 Hyperlipidemia, unspecified; M19.90 Unspecified osteoarthritis, unspecified site; G25.81 Restless legs syndrome; Z87.891 Personal history of nicotine dependence; Z79.82 Long term (current) use of aspirin; Z79.01 Long term (current) use of anticoagulants
CPT/HCPCS: 87070; 87205; 99213; G0463